=== PATIENT | male | born 1985 | race Caucasian/White ===

== ENCOUNTER 2019-09-03 15:50 | Emergency (ER) | payer OTHER ==
[~2019-09-03] VITALS: Ht 182.9 cm; Wt 88.6 kg
[2019-09-03 16:05] VITALS: BP 144/98
--- NOTE | 2019-09-03 16:33 | NUR ---
PT HERE WITH C/O LEFT CLAVICLE PAIN S/P FALL SNOWBOARDING.
[2019-09-03] MEDS ORDERED: KETOROLAC 30 MG/1 ML IM ONE (17:00)
[2019-09-03] MEDS ORDERED: KETOROLAC 30 MG/1 ML ONE (17:19)
--- NOTE | 2019-09-03 17:26 | NUR ---
THIS RN BEDSIDE TO MEDICATE FOR PAIN WITH TORIADOL IM, PT REFUSED. PA UPDATED.
--- NOTE | 2019-09-03 17:51 | NUR ---
Patient/Caregiver given discharge instructions and they have confirmed that they understand the instructions. Patient ambulatory with steady gait.
== END 2019-09-03 18:45 | disposition home or self-care (01) ==
LOC: ED 17:41
DX: S42.031A Displaced fracture of lateral end of right clavicle, initial encounter for closed fracture (principal); W18.39XA Other fall on same level, initial encounter; Y93.23 Activity, snow (alpine) (downhill) skiing, snowboarding, sledding, tobogganing and snow tubing; Y92.89 Other specified places as the place of occurrence of the external cause; Y99.8 Other external cause status
CPT/HCPCS: 29105; 99283